=== PATIENT | female | born 1980 | race Asian ===

== ENCOUNTER → 2018-11-08 | Outpatient (CLI) | payer OTHER ==
[2018-11-08 10:38] LABS: FREE T4 (FREE THYROXINE) 0.91 NG/DL (0.70-1.48)
--- NOTE | 2018-11-08 10:54 | Diagnostic Imaging Report ---
CLINICAL INDICATION: Patient with goiter, fatigue and racing heart. COMPARISONS: None. FINDINGS: THYROID NODULES: There is a 5 mm x 3 mm x 4 mm subtle hypoechoic nodule involving the inferior portion of the left thyroid gland. There is no significant central Doppler flow associated with this area. THYROID GLAND: Besides the thyroid nodule, the thyroid gland has normal size, shape and echogenicity. The right lobe measures 6.1 cm x 1.7 cm x 2.1 cm and the left lobe measures 5.5 cm x 1.7 cm x 1.9 cm in their three dimensions. ISTHMUS: The isthmus is unremarkable and measures 2 mm in thickness. IMPRESSION: There is a 5 mm hypoechoic nodule involving the inferior pole of the left thyroid gland. Otherwise, unremarkable thyroid ultrasound exam. Dictated by: Dictated on workstation # [id number]
== END ==
LOC: RAD 09:05
PROVIDERS: ATTEND Otolaryngology Otolaryngology/Facial Plastic Surgery
DX: E04.1 Nontoxic single thyroid nodule (principal); R53.83 Other fatigue
CPT/HCPCS: 36415; 76536; 84439; 84443

== ENCOUNTER → 2019-11-05 | Outpatient (CLI) | payer OTHER ==
--- NOTE | 2019-11-05 15:33 | Diagnostic Imaging Report ---
PROCEDURE: US Thyroid. TECHNIQUE: Multiple real-time grayscale images were obtained of the thyroid in various projections. INDICATION: Goiter. COMPARISON: Correlation is made with prior thyroid ultrasound 11/08/2018. FINDINGS: Right lobe of thyroid measures 5.5 x 1.5 x 2.1 cm and the left lobe measures 5.3 x 1.3 x 2.2 cm. Tiny nodule in lower pole of left lobe is again noted measuring approximately 4 mm in diameter, similar to prior exam. No new mass is detected. IMPRESSION: Stable subcentimeter left lobe thyroid nodule when compared with exam one year earlier. No dominant thyroid masses detected. Dictated by: Dictated on workstation # [id number]
== END ==
LOC: RAD 13:57
PROVIDERS: ATTEND Otolaryngology Otolaryngology/Facial Plastic Surgery
DX: E04.1 Nontoxic single thyroid nodule (principal)
CPT/HCPCS: 76536

== ENCOUNTER → 2021-12-05 | Outpatient (CLI) | payer OTHER ==
--- NOTE | 2021-12-05 15:17 | Diagnostic Imaging Report ---
PROCEDURE: US Thyroid. TECHNIQUE: Multiple real-time grayscale images were obtained of the thyroid in various projections. INDICATION: Left thyroid nodule. COMPARISON: 11/05/2019, 11/08/2018. FINDINGS: Right thyroid lobe: Size (cm): 5.9 x 2.0 x 2.0 Echotexture: Normal Vascularity: Normal Nodules: None Isthmus: Size (cm): 0.3 Nodules: None Left thyroid lobe: Size (cm): 5.7 x 1.3 x 2.0 Echotexture: Normal Vascularity: Normal Nodules: There is an ill-defined hypoechoic nodule in the inferior left thyroid which measures up to 5 mm in size. IMPRESSION: 1. Unchanged subcentimeter hypoechoic nodule in the inferior left thyroid. No follow-up is indicated based on TI-RADS criteria. Dictated by: Dictated on workstation # [id number]
== END ==
LOC: RAD 13:19
PROVIDERS: ATTEND Otolaryngology Otolaryngology/Facial Plastic Surgery
DX: E04.1 Nontoxic single thyroid nodule (principal)
CPT/HCPCS: 76536